=== PATIENT | female | born 1965 | race Caucasian/White ===

== ENCOUNTER 2020-11-24 13:07 | Emergency (ER) | payer MEDICAID ==
[~2020-11-24] VITALS: Ht 162.6 cm; Wt 64.0 kg
[2020-11-24] MEDS ORDERED: ONDANSETRON HCL 4MG/2ML INJ IV STA ×2 (13:48→14:16)
[2020-11-24] MEDS ORDERED: MORPHINE SULFATE 4 MG/ML CPJ (NOT FOR IM USE) IV STA ×2 (13:48→14:16)
[2020-11-24 13:57] LABS: BASOPHILS % 0.5 % (0.0-2.0); HEMATOCRIT. 38.5 % (36.0-48.0); HEMOGLOBIN. 13.4 g/dL (12.0-16.0); LYMPHOCYTES % 8.8 % (20.0-50.0); MEAN CORPUSCULAR HEMOGLOBIN 27.5 pg (28.0-32.0); MEAN CORPUSCULAR VOLUME 79.1 fL (81.0-99.0); MEAN PLATELET VOLUME 8.5 fl (7.4-10.4); MONOCYTES % 5.1 % (2.0-8.0); NEUTROPHILS % 85.6 % (40.0-76.0); PLATELET 371 x1000/uL (130-400); RED BLOOD CELL COUNT 4.86 mill/uL (4.2-5.4); RED CELL DISTRIBUTION WIDTH 14.9 % (11.6-14.6)
[2020-11-24 14:00] LABS: CHLORIDE 104 mEq/L (98-107)
[2020-11-24 14:10] LABS: PROTHROMBIN TIME 10.4 sec (9.6-11.0)
[2020-11-24] MEDS ORDERED: SODIUM CHLORIDE 0.9% 1,000 ML IV ONE (14:30)
[2020-11-24 14:39] LABS: CLARITY URINE CLEAR (CLEAR); COLOR URINE YELLOW (YELLOW); KETONES URINE 2+ (NEGATIVE); LEUKOCYTE ESTERASE URINE NEGATIVE (NEGATIVE); NITRITE URINE NEGATIVE (NEGATIVE); OCCULT BLOOD URINE NEGATIVE (NEGATIVE); PH URINE 8.5 (4.5-8.0); PROTEIN URINE TRACE (NEGATIVE); UROBILINOGEN URINE 0.2 E.U./dL (0.2-1.0)
[2020-11-24] MEDS ORDERED: TAMSULOSIN HCL 0.4MG SR CAPSULE PO ONE (15:45)
[2020-11-24] MEDS ORDERED: IBUP-2029 MT (15:49)
[2020-11-24] MEDS ORDERED: ONDA4TAB5 MT (15:49)
[2020-11-24] MEDS ORDERED: TAMS-11 PO (15:49)
[2020-11-24 17:01] VITALS: BP 131/80
== END 2020-11-24 17:05 | disposition home or self-care (01) ==
LOC: ER 13:07
DX: N13.2 Hydronephrosis with renal and ureteral calculous obstruction (principal); G43.909 Migraine, unspecified, not intractable, without status migrainosus; F99 Mental disorder, not otherwise specified; Z90.49 Acquired absence of other specified parts of digestive tract
CPT/HCPCS: 36415; 74176; 80053; 81003; 83690; 85025; 85610; 96374; 96375; 99284; J2270; J2405; J7030; Z7610